=== PATIENT | male | born 1990 | race Caucasian/White ===

== ENCOUNTER 2020-05-21 15:44 | Outpatient (CLI) | payer BC, OTHER ==
[2020-05-21] MEDS ORDERED: FENO160T PO (16:14)
[2020-05-21 16:35] LABS: ANION GAP 6 mmol/L (5-15); CALCIUM 9.6 mg/dL (8.5-10.1); CHLORIDE 109 mmol/L (98-107); CREATININE 1.21 mg/dL (0.7-1.3)
[2020-05-26] MEDS ORDERED: HYDR-2214 PO (15:30)
== END 2020-05-21 23:59 | disposition home or self-care (01) ==
LOC: STAR 15:44
PROVIDERS: ATTEND Surgery
DX: Z01.812 Encounter for preprocedural laboratory examination (principal); Z20.822 Contact with and (suspected) exposure to COVID-19; K40.20 Bilateral inguinal hernia, without obstruction or gangrene, not specified as recurrent
CPT/HCPCS: 36415; 80048; U0003

== ENCOUNTER 2020-05-26 13:00 | Day surgery (SDC) | payer BC, OTHER ==
[~2020-05-26] VITALS: Ht 182.9 cm; Wt 95.0 kg
[~2020-05-26 13:00] MED LIST: FENO160T PO
[2020-05-26] MEDS ORDERED: CHLORHEXIDINE 15 ML UDC ONE (14:17)
[2020-05-26] MEDS ORDERED: LACTATED RINGERS 1,000 ML IV SCH (14:30)
[2020-05-26] MEDS ORDERED: CHLORHEXIDINE 15 ML UDC PO ONE (14:30)
[2020-05-26] MEDS ORDERED: BUPIVACAINE/PF 0.25% ONE (15:08)
[2020-05-26] MEDS ORDERED: EPINEPHRINE 1 MG/ML, 1ML ONE (15:08)
[2020-05-26] MEDS ORDERED: HYDR-1067 PO (15:30)
[2020-05-26] MEDS ORDERED: MIDAZOLAM 1 MG/ML, 2ML ONE (15:33)
[2020-05-26] MEDS ORDERED: FENTANYL PF 250 MCG/5ML ONE (15:34)
[2020-05-26] MEDS ORDERED: ONDANSETRON 2MG/ML, 2ML ONE (16:58)
[2020-05-26] MEDS ORDERED: DEXAMETHASONE 4 MG/ML, 1ML ONE (16:58)
[2020-05-26] MEDS ORDERED: SUCCINYLCHOLINE 20 MG/ML, 10ML ONE (16:58)
[2020-05-26] MEDS ORDERED: ROCURONIUM 10MG/ML,5ML ONE (16:58)
[2020-05-26] MEDS ORDERED: CEFAZOLIN 1,000 MG ONE (16:58)
[2020-05-26] MEDS ORDERED: KETOROLAC 30 MG/1 ML ONE (16:58)
[2020-05-26] MEDS ORDERED: PROPOFOL 10 MG/ML, 20ML ONE (16:58)
[2020-05-26] MEDS ORDERED: GLYCOPYRROLATE 0.2MG/1ML, 5ML ONE (16:58)
[2020-05-26] MEDS ORDERED: NEOSTIGMINE 1 MG/ML, 10ML ONE (16:58)
[2020-05-26] MEDS ORDERED: PROMETHAZINE 25 MG/ML, 1ML IV PRN (17:00)
[2020-05-26] MEDS ORDERED: KETOROLAC 30 MG/1 ML IV PRN (17:00)
[2020-05-26] MEDS ORDERED: OXYcodone 5 MG/5 ML ORAL.SOL UDC PO PRN (17:00)
[2020-05-26] MEDS ORDERED: FENTANYL PF 100 MCG/2ML IV PRN (17:00)
[2020-05-26] MEDS ORDERED: ACETAMINOPHEN 325 MG TABLET PO PRN (17:00)
[2020-05-26] MEDS ORDERED: hydrALAzine 20 MG/ML, 1ML IV PRN (17:00)
[2020-05-26] MEDS ORDERED: ALBUTEROL SULFATE 2.5 MG/3 ML NPPB PRN (17:00)
[2020-05-26] MEDS ORDERED: LABETALOL 5MG/ML, 20ML IV PRN (17:00)
[2020-05-26] MEDS ORDERED: MEPERIDINE/PF 25MG/0.5ML IVPush PRN (17:00)
[2020-05-26] MEDS ORDERED: DIAZEPAM 5 MG/ML, 2ML IVPush PRN (17:00)
[2020-05-26] MEDS ORDERED: HYDROmorphone 2 MG/ML, 1ML IVPush PRN (17:00)
[2020-05-26] MEDS ORDERED: ACETAMINOPHEN 325 MG TABLET ONE (17:25)
== END 2020-05-26 20:00 | disposition home or self-care (01) ==
LOC: OR 13:00
PROVIDERS: ATTEND Surgery
DX: K40.20 Bilateral inguinal hernia, without obstruction or gangrene, not specified as recurrent (principal); D17.6 Benign lipomatous neoplasm of spermatic cord; E78.00 Pure hypercholesterolemia, unspecified; Z79.899 Other long term (current) drug therapy; Z88.2 Allergy status to sulfonamides
CPT/HCPCS: 49505; C1781; J0171; J0330; J0690; J1100; J1885; J2250; J2405; J2704; J2710; J3010